=== PATIENT | female | born 1985 | race Two or more races ===

== ENCOUNTER 2023-08-28 12:06 | Outpatient (OUT) | payer OTHER, SELFPAY ==
--- NOTE | 2023-08-28 12:21 | MR_ITS ---
The [address] [address] Patient Name: FADI XIONG MRN: [id number] date: 1985 Sex: F Assigned Patient Location: MRI Current Patient Location: MRI Accession/Order Number: [id number] Exam Date: 08/28/2023 12:40 Report Date: 08/28/2023 14:52 At the request of: VEENA HERNANDEZ Procedure: MR head/brain wo/w con MR head/brain wo/w con, 08/28/2023 12:40 PM EDT INDICATION: Galactorrhea COMPARISON: There is no appropriate prior study for comparison. TECHNIQUE: Multiplanar, multisequential MRI images of brain were obtained without and with injection of contrast. FINDINGS: The cerebral sulci as well as ventricular system are appropriate for age. There is no restricted diffusion. Pituitary gland: Tiny hypointense lesion in the left side of the hypophysis is noted with gradual enhancement likely a small microadenoma. It measures approximately 4.5 x 2.7 mm (CC, transverse). No other abnormality of the pituitary gland is noted. The pituitary stalk is in midline. The cavernous sinuses and optic chiasma are unremarkable. There is no intracranial mass, mass effect, midline shift, intra or extra-axial fluid collection or large hemorrhage. No abnormal enhancing lesion is noted. Normal flow-void in the intracranial vessels is noted. The visualized portions of orbits, mastoid air cells as well as paranasal sinuses are unremarkable. 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 Electronically authenticated by: ABELINO OLIVEIRA Date: 08/28/2023 14:52
== END 2023-08-28 12:07 | disposition home or self-care (01) ==
PROVIDERS: PCP Family Medicine; Visit Provider Family Medicine
DX: N64.3 Galactorrhea not associated with childbirth (principal); D35.2 Benign neoplasm of pituitary gland; R51.9 Headache, unspecified
CPT/HCPCS: 70553; A9575